=== PATIENT | female | born 2000 | race Caucasian/White ===

== ENCOUNTER 2021-09-08 01:29 | Emergency (ER) | payer OTHER ==
[~2021-09-08] VITALS: Ht 144.8 cm; Wt 66.0 kg
[2021-09-08 01:41] VITALS: BP 106/73
[2021-09-08] MEDS ORDERED: TETANUS, DIPHTHERIA, PERTUSSIS VAC/PF 0.5ML (>10YR OLD) IM ONE (02:00)
[2021-09-08] MEDS ORDERED: ACETAMINOPHEN 325MG TABLET PO ONE (02:00)
== END 2021-09-08 03:45 | disposition left against medical advice (07) ==
LOC: ER 01:29
DX: M79.644 Pain in right finger(s) (principal); G89.11 Acute pain due to trauma; W20.8XXA Other cause of strike by thrown, projected or falling object, initial encounter; Y93.89 Activity, other specified; Y92.89 Other specified places as the place of occurrence of the external cause
CPT/HCPCS: 29125; 73130; 90715; 99283